=== PATIENT | female | born 1980 | race Caucasian/White ===

== ENCOUNTER 2017-09-06 02:02 | Emergency (ER) | payer SELFPAY ==
[~2017-09-06] VITALS: Ht 162.6 cm; Wt 54.4 kg
[2017-09-06 02:15] VITALS: Ht 162.6 cm; Wt 54.4 kg
[2017-09-06 04:09] VITALS: BP 135/79
== END 2017-09-06 04:09 | disposition home or self-care (01) ==
LOC: ED 02:02
DX: S00.83XA Contusion of other part of head, initial encounter (principal); Y08.89XA Assault by other specified means, initial encounter; Y93.89 Activity, other specified; Y92.89 Other specified places as the place of occurrence of the external cause; Y99.8 Other external cause status